=== PATIENT | male | born 1970 | race Asian ===

== ENCOUNTER 2022-09-20 18:11 | Inpatient (IN) | payer OTHER ==
[~2022-09-20] VITALS: Ht 172.7 cm; Wt 79.0 kg
[2022-09-20] MEDS ORDERED: LABETALOL HCL 5 MG/ML 20 ML VIAL IVP PRN (18:30)
[2022-09-20] MEDS ORDERED: SODIUM CHLORIDE 0.9% 100 ML ONE (18:44)
[2022-09-20] MEDS ORDERED: IOHEXOL 350 MG/ML 100 ML VIAL ONE (18:44)
[2022-09-20 18:47] LABS: BASOPHILS % (AUTO) 1.1 % (0.0-2.0); EOSINOPHILS % (AUTO) 3.2 % (1.0-6.0); HEMATOCRIT 47.6 % (41-53); HEMOGLOBIN 15.9 g/dL (13.5-17.5); LYMPHOCYTES # (AUTO) 2.6 K/uL (1.0-4.8); MEAN CORPUSCULAR HEMOGLOBIN 26.9 pg (26.0-34.0); MEAN CORPUSCULAR HGB CONC 33.4 G/dL (31.0-37.0); MEAN CORPUSCULAR VOLUME 81 fL (80-100); MONOCYTES # (AUTO) 0.7 K/uL (0.1-1.0); MONOCYTES % (AUTO) 7.2 % (2.0-9.0); NEUTROPHILS # (AUTO) 5.6 K/uL (1.8-7.7); NEUTROPHILS % (AUTO) 60.5 % (40.0-70.0); PLATELET COUNT (AUTO) 253 K/uL (150-450); RED BLOOD CELL COUNT(AUTO) 5.89 MIL/uL (4.50-5.90); RED CELL DISTRIBUTION WIDTH 14.4 % (11.5-14.5)
[2022-09-20 19:00] LABS: INR 0.9 (0.9-1.1); PROTHROMBIN TIME 9.8 SEC (9.4-11.6)
[2022-09-20] MEDS ORDERED: SODIUM CHLORIDE 0.9% 1,000 ML IV ONE (19:00)
[2022-09-20] MEDS ORDERED: ASPIRIN 325 MG TABLET PO ONE (19:00)
[2022-09-20 19:03] LABS: CALCIUM, TOTAL 9.1 mg/dL (8.8-10.5); CREATININE 1.52 mg/dL (0.60-1.30); POTASSIUM 3.8 mmol/L (3.5-5.1)
[2022-09-20 19:08] LABS: ALBUMIN 2.9 g/dL (3.4-5.0); BILIRUBIN,TOTAL 0.3 mg/dL (0.1-1.0); TOTAL PROTEIN, SERUM 6.6 g/dL (6.4-8.2)
[2022-09-20 19:09] LABS: PHOSPHORUS 3.7 mg/dL (2.5-4.9)
[2022-09-20] MEDS ORDERED: CLOPIDOGREL BISULFATE 75 MG TABLET PO ONE (19:30)
[2022-09-20] MEDS ORDERED: ONDANSETRON HCL 4 MG/2 ML VIAL IVP PRN (20:00)
[2022-09-20] MEDS ORDERED: NiCARDipine HCL 25 MG in SODIUM CHLORIDE 0.9% 240 ML IV PRN (20:00)
[2022-09-20] MEDS ORDERED: ACETAMINOPHEN 325 MG TABLET PO PRN (20:00)
[2022-09-20] MEDS: DOCUSATE SODIUM 100 MG CAPSULE PO SCH (20:48)
[2022-09-20] MEDS ORDERED: ACETYLCYSTEINE 10% 100 MG/ML 30 ML ORAL SOLUTION PO SCH (21:00)
[2022-09-20 21:11] LABS: APPEARANCE,URINE CLEAR (CLEAR); BILIRUBIN,URINE NEGATIVE (NEGATIVE); GLUCOSE, URINE (UA) 300-500 mg/dL (NEGATIVE); KETONES,URINE NEGATIVE (NEGATIVE); LEUKOCYTE ESTERASE ,URINE NEGATIVE (NEGATIVE); NITRATE,URINE NEGATIVE (NEGATIVE); OCCULT BLOOD,URINE MODERATE (NEGATIVE); PROTEIN,URINE 300-600,SEE CONFIRM mg/dL (NEGATIVE); UROBILINOGEN,URINE <=1.0 mg/dL (<=1.0)
[2022-09-20 21:17] LABS: AMPHET/METH SCREEN,URINE NEGATIVE (NEGATIVE); BARBITURATE SCREEN, URINE NEGATIVE (NEGATIVE); BENZODIAZEPINES SCREEN,URINE NEGATIVE (NEGATIVE); CANNABINOID SCREEN,URINE NEGATIVE (NEGATIVE); COCAINE SCREEN,URINE NEGATIVE (NEGATIVE); METHADONE SCREEN, URINE NEGATIVE (NEGATIVE); OPIATE SCREEN,URINE NEGATIVE (NEGATIVE); PHENCYCLIDINE SCREEN,URINE NEGATIVE (NEGATIVE)
[2022-09-20 21:26] LABS: SULFOSALICYLIC ACID,URINE 4+ (Negative)
[2022-09-20 21:27] LABS: BACTERIA,URINE None Seen /HPF (None Seen)
[2022-09-20 22:00] VITALS: BP 163/83
[2022-09-20] MEDS ORDERED: ATORVASTATIN CALCIUM 40 MG TABLET PO ONE (23:00)
[2022-09-20 23:13] LABS: HEMOGLOBIN A1C 9.1 % (3.8-5.6)
[2022-09-20 23:22] LABS: CHOL/HDL RATIO 5.4 (4.2-7.3); THYROID STIMULATING HORMONE 1.13 uIU/mL (0.36-3.74)
[2022-09-21] VITALS: BP 136/89
[2022-09-21 04:00] VITALS: BP 135/83
[2022-09-21 05:41] LABS: EOSINOPHILS % (AUTO) 2.4 % (1.0-6.0); HEMATOCRIT 42.9 % (41-53); HEMOGLOBIN 14.6 g/dL (13.5-17.5); LYMPHOCYTES # (AUTO) 1.5 K/uL (1.0-4.8); LYMPHOCYTES % (AUTO) 15.8 % (22.0-44.0); MEAN CORPUSCULAR HEMOGLOBIN 27.3 pg (26.0-34.0); MEAN CORPUSCULAR HGB CONC 33.9 G/dL (31.0-37.0); MEAN CORPUSCULAR VOLUME 80 fL (80-100); MONOCYTES # (AUTO) 0.5 K/uL (0.1-1.0); MONOCYTES % (AUTO) 5.8 % (2.0-9.0); PLATELET COUNT (AUTO) 221 K/uL (150-450); RED BLOOD CELL COUNT(AUTO) 5.34 MIL/uL (4.50-5.90); RED CELL DISTRIBUTION WIDTH 14.4 % (11.5-14.5)
[2022-09-21 05:42] LABS: CALCIUM, TOTAL 8.3 mg/dL (8.8-10.5); CREATININE 1.32 mg/dL (0.60-1.30); POTASSIUM 3.5 mmol/L (3.5-5.1)
[2022-09-21 08:00] VITALS: BP 153/88
[2022-09-21] MEDS: ACETYLCYSTEINE 20% 200 MG/ML 4 ML ORAL SOLUTION PO SCH ×2 (09:00→20:35)
[2022-09-21] MEDS ORDERED: DEXTROSE 50%-WATER 25 GM/50 ML SYRINGE IVP PRN (09:45)
[2022-09-21] MEDS: DOCUSATE SODIUM 100 MG CAPSULE PO SCH ×2 (10:19→20:24)
[2022-09-21] MEDS: ATORVASTATIN CALCIUM 40 MG TABLET PO SCH (10:20)
[2022-09-21] MEDS: AmLODIPine BESYLATE 10 MG TABLET PO SCH (10:20)
[2022-09-21] MEDS: INSULIN LISPRO 100 UNITS/ML SQ PRN ×3 (11:40→20:26)
[2022-09-21 12:00] VITALS: BP 146/88
[2022-09-21 13:06] LABS: GLUCOSE,POINT OF CARE 210 MG/DL (70-110)
[2022-09-21 16:00] VITALS: BP 146/88
[2022-09-21] MEDS: LOSARTAN POTASSIUM 25 MG TABLET PO SCH ×2 (18:30→19:38)
[2022-09-21 20:00] VITALS: BP 140/77
[2022-09-21 21:00] LABS: GLUCOSE,POINT OF CARE 202 MG/DL (70-110)
[2022-09-21 21:26] LABS: GLUCOSE,POINT OF CARE 191 MG/DL (70-110)
[2022-09-22] VITALS: BP 154/88
[2022-09-22 04:00] VITALS: BP 145/86
[2022-09-22 05:11] LABS: GLUCOSE,POINT OF CARE 174 MG/DL (70-110)
[2022-09-22 05:58] LABS: BASOPHILS % (AUTO) 0.6 % (0.0-2.0); CALCIUM, TOTAL 8.7 mg/dL (8.8-10.5); CREATININE 1.35 mg/dL (0.60-1.30); EOSINOPHILS % (AUTO) 3.2 % (1.0-6.0); HEMATOCRIT 45.9 % (41-53); HEMOGLOBIN 15.1 g/dL (13.5-17.5); LYMPHOCYTES # (AUTO) 2.1 K/uL (1.0-4.8); LYMPHOCYTES % (AUTO) 22.1 % (22.0-44.0); MEAN CORPUSCULAR HEMOGLOBIN 26.6 pg (26.0-34.0); MEAN CORPUSCULAR HGB CONC 32.9 G/dL (31.0-37.0); MEAN CORPUSCULAR VOLUME 81 fL (80-100); MONOCYTES # (AUTO) 0.7 K/uL (0.1-1.0); MONOCYTES % (AUTO) 7.8 % (2.0-9.0); NEUTROPHILS # (AUTO) 6.4 K/uL (1.8-7.7); NEUTROPHILS % (AUTO) 66.3 % (40.0-70.0); PLATELET COUNT (AUTO) 244 K/uL (150-450); POTASSIUM 3.8 mmol/L (3.5-5.1); RED BLOOD CELL COUNT(AUTO) 5.68 MIL/uL (4.50-5.90); RED CELL DISTRIBUTION WIDTH 14.3 % (11.5-14.5)
[2022-09-22] MEDS: INSULIN LISPRO 100 UNITS/ML SQ PRN ×3 (06:32→20:38)
[2022-09-22 08:00] VITALS: BP 130/81
[2022-09-22] MEDS: ATORVASTATIN CALCIUM 40 MG TABLET PO SCH (08:39)
[2022-09-22] MEDS: AmLODIPine BESYLATE 10 MG TABLET PO SCH (08:39)
[2022-09-22] MEDS: CLOPIDOGREL BISULFATE 75 MG TABLET PO SCH (08:39)
[2022-09-22] MEDS: ASPIRIN 81 MG CHEWABLE TABLET PO SCH (08:39)
[2022-09-22] MEDS: DOCUSATE SODIUM 100 MG CAPSULE PO SCH ×2 (08:39→20:32)
[2022-09-22] MEDS: GlipiZIDE 5 MG TABLET PO SCH (08:39)
[2022-09-22] MEDS: LOSARTAN POTASSIUM 25 MG TABLET PO SCH ×2 (08:40→20:32)
[2022-09-22] MEDS: ACETYLCYSTEINE 20% 200 MG/ML 4 ML ORAL SOLUTION PO SCH ×2 (08:40→20:32)
[2022-09-22 12:00] VITALS: BP 134/84
[2022-09-22 16:00] VITALS: BP 137/84
[2022-09-22 20:00] VITALS: BP 152/96
[2022-09-22 20:46] LABS: GLUCOSE,POINT OF CARE 223 MG/DL (70-110)
[2022-09-22 20:46] LABS: GLUCOSE,POINT OF CARE 135 MG/DL (70-110)
[2022-09-23] VITALS: BP 146/92
[2022-09-23 00:46] LABS: GLUCOSE,POINT OF CARE 209 MG/DL (70-110)
[2022-09-23 04:00] VITALS: BP 151/89
[2022-09-23] MEDS: INSULIN LISPRO 100 UNITS/ML SQ PRN ×2 (05:31→11:35)
[2022-09-23] MEDS: GlipiZIDE 5 MG TABLET PO SCH (05:31)
[2022-09-23 05:37] LABS: CALCIUM, TOTAL 8.6 mg/dL (8.8-10.5); CREATININE 1.4 mg/dL (0.60-1.30); POTASSIUM 3.8 mmol/L (3.5-5.1)
[2022-09-23 08:00] VITALS: BP 133/90
[2022-09-23] MEDS: DOCUSATE SODIUM 100 MG CAPSULE PO SCH ×2 (08:34→20:53)
[2022-09-23] MEDS: ATORVASTATIN CALCIUM 40 MG TABLET PO SCH (08:35)
[2022-09-23] MEDS: CLOPIDOGREL BISULFATE 75 MG TABLET PO SCH (08:35)
[2022-09-23] MEDS: LOSARTAN POTASSIUM 25 MG TABLET PO SCH ×2 (08:35→20:53)
[2022-09-23] MEDS: AmLODIPine BESYLATE 10 MG TABLET PO SCH (08:35)
[2022-09-23] MEDS: ASPIRIN 81 MG CHEWABLE TABLET PO SCH (08:36)
[2022-09-23 10:26] LABS: GLUCOSE,POINT OF CARE 193 MG/DL (70-110)
[2022-09-23 12:00] VITALS: BP 114/69
[2022-09-23] MEDS: ACETYLCYSTEINE 20% 200 MG/ML 4 ML ORAL SOLUTION PO SCH ×2 (15:35→20:54)
[2022-09-23 16:00] VITALS: BP 128/72
[2022-09-23 17:46] LABS: GLUCOSE,POINT OF CARE 257 MG/DL (70-110)
[2022-09-23 20:22] LABS: GLUCOMETER DEV NAME(LOC) 5N.2C; GLUCOSE,POINT OF CARE 193 MG/DL (70-110)
[2022-09-23 20:38] VITALS: BP 120/73
[2022-09-24 00:37] VITALS: BP 129/82
[2022-09-24 04:56] VITALS: BP 148/85
[2022-09-24 05:56] LABS: GLUCOMETER DEV NAME(LOC) 5N.1C; GLUCOSE,POINT OF CARE 135 MG/DL (70-110)
[2022-09-24] MEDS: GlipiZIDE 5 MG TABLET PO SCH (06:20)
[2022-09-24] MEDS: INSULIN LISPRO 100 UNITS/ML SQ PRN ×4 (07:08→21:50)
[2022-09-24 07:29] VITALS: BP 144/81
[2022-09-24] MEDS: ASPIRIN 81 MG CHEWABLE TABLET PO SCH (08:18)
[2022-09-24] MEDS: CLOPIDOGREL BISULFATE 75 MG TABLET PO SCH (08:19)
[2022-09-24] MEDS: ATORVASTATIN CALCIUM 40 MG TABLET PO SCH (08:19)
[2022-09-24] MEDS: LOSARTAN POTASSIUM 25 MG TABLET PO SCH ×2 (08:19→21:02)
[2022-09-24] MEDS: AmLODIPine BESYLATE 10 MG TABLET PO SCH (08:19)
[2022-09-24] MEDS: DOCUSATE SODIUM 100 MG CAPSULE PO SCH ×2 (08:19→21:02)
[2022-09-24 08:46] LABS: GLUCOMETER DEV NAME(LOC) 5S.1B; GLUCOSE,POINT OF CARE 198 MG/DL (70-110)
[2022-09-24 12:03] VITALS: BP 150/82
[2022-09-24 15:08] VITALS: BP 150/81
[2022-09-24 21:13] VITALS: BP 120/72
[2022-09-24 21:41] LABS: GLUCOMETER DEV NAME(LOC) 5N.1C; GLUCOSE,POINT OF CARE 165 MG/DL (70-110)
[2022-09-24 23:06] LABS: GLUCOMETER DEV NAME(LOC) 5N.2C; GLUCOSE,POINT OF CARE 255 MG/DL (70-110)
[2022-09-25] VITALS: BP 121/69
[2022-09-25 01:41] LABS: GLUCOMETER DEV NAME(LOC) 5S.2C; GLUCOSE,POINT OF CARE 159 MG/DL (70-110)
[2022-09-25 04:00] VITALS: BP 132/75
[2022-09-25 06:26] LABS: GLUCOMETER DEV NAME(LOC) 5N.1C; GLUCOSE,POINT OF CARE 190 MG/DL (70-110)
[2022-09-25] MEDS: INSULIN LISPRO 100 UNITS/ML SQ PRN ×3 (06:45→20:13)
[2022-09-25] MEDS: GlipiZIDE 5 MG TABLET PO SCH (06:46)
[2022-09-25 07:40] VITALS: BP 133/78
[2022-09-25] MEDS: LOSARTAN POTASSIUM 25 MG TABLET PO SCH ×2 (10:05→20:04)
[2022-09-25] MEDS: DOCUSATE SODIUM 100 MG CAPSULE PO SCH ×2 (10:05→20:15)
[2022-09-25] MEDS: ATORVASTATIN CALCIUM 40 MG TABLET PO SCH (10:05)
[2022-09-25] MEDS: ASPIRIN 81 MG CHEWABLE TABLET PO SCH (10:06)
[2022-09-25] MEDS: CLOPIDOGREL BISULFATE 75 MG TABLET PO SCH (10:06)
[2022-09-25] MEDS: AmLODIPine BESYLATE 10 MG TABLET PO SCH (10:06)
[2022-09-25 11:06] VITALS: BP 129/77
[2022-09-25 15:05] VITALS: BP 133/76
[2022-09-25 18:10] LABS: COVID AG,FIA SOURCE NASAL SWAB
[2022-09-25 20:07] VITALS: BP 116/70
[2022-09-25 20:41] LABS: GLUCOMETER DEV NAME(LOC) 5S.1B; GLUCOSE,POINT OF CARE 263 MG/DL (70-110)
[2022-09-25 20:46] LABS: GLUCOMETER DEV NAME(LOC) 5N.2C; GLUCOSE,POINT OF CARE 188 MG/DL (70-110)
[2022-09-25 20:46] LABS: GLUCOMETER DEV NAME(LOC) 5N.2C; GLUCOSE,POINT OF CARE 160 MG/DL (70-110)
[2022-09-26 00:18] VITALS: BP 112/68
[2022-09-26 04:31] VITALS: BP 113/94
[2022-09-26] MEDS: GlipiZIDE 5 MG TABLET PO SCH (06:03)
[2022-09-26] MEDS: INSULIN LISPRO 100 UNITS/ML SQ PRN ×3 (06:08→18:11)
[2022-09-26 06:26] LABS: GLUCOMETER DEV NAME(LOC) 5N.1C; GLUCOSE,POINT OF CARE 152 MG/DL (70-110)
[2022-09-26 08:09] VITALS: BP 113/77
[2022-09-26] MEDS: ATORVASTATIN CALCIUM 40 MG TABLET PO SCH (09:20)
[2022-09-26] MEDS: CLOPIDOGREL BISULFATE 75 MG TABLET PO SCH (09:20)
[2022-09-26] MEDS: DOCUSATE SODIUM 100 MG CAPSULE PO SCH (09:20)
[2022-09-26] MEDS: LOSARTAN POTASSIUM 25 MG TABLET PO SCH (09:21)
[2022-09-26] MEDS: AmLODIPine BESYLATE 10 MG TABLET PO SCH (09:21)
[2022-09-26] MEDS: ASPIRIN 81 MG CHEWABLE TABLET PO SCH (09:21)
[2022-09-26 11:45] VITALS: BP 107/71
[2022-09-26 15:56] VITALS: BP 110/51
[2022-09-26 18:41] LABS: GLUCOMETER DEV NAME(LOC) 5N.1C; GLUCOSE,POINT OF CARE 166 MG/DL (70-110)
[2022-09-26 18:46] LABS: GLUCOMETER DEV NAME(LOC) 5N.2C; GLUCOSE,POINT OF CARE 141 MG/DL (70-110)
== END 2022-09-26 18:40 | DRG 64 ==
LOC: EMS 18:11 → ICU 20:24 → 5S 09-23 16:45
PROVIDERS: ADMIT Internal Medicine; ATTEND Internal Medicine
DX: I63.29 Cerebral infarction due to unspecified occlusion or stenosis of other precerebral arteries (principal); I50.31 Acute diastolic (congestive) heart failure; I16.1 Hypertensive emergency; N17.9 Acute kidney failure, unspecified; Z20.822 Contact with and (suspected) exposure to COVID-19; E11.9 Type 2 diabetes mellitus without complications; E78.5 Hyperlipidemia, unspecified; R26.89 Other abnormalities of gait and mobility; R47.1 Dysarthria and anarthria; F17.200 Nicotine dependence, unspecified, uncomplicated; I11.0 Hypertensive heart disease with heart failure; Z79.02 Long term (current) use of antithrombotics/antiplatelets; Z79.82 Long term (current) use of aspirin; Z79.84 Long term (current) use of oral hypoglycemic drugs; Z79.899 Other long term (current) drug therapy; Z71.6 Tobacco abuse counseling; Z91.148 Patient's other noncompliance with medication regimen for other reason
CPT/HCPCS: 70496; 70498; 70551; 71045; 74230; 80048; 80053; 80061; 80307; 81001; 81002; 82948; 82962; 83036; 83735; 83880; 84100; 84443; 84484; 85025; 85610; 85730; 86850; 86900; 86901; 87081; 92526; 92610; 92611; 93005; 93306; 93880; 97112; 97116; 97163; 97166; 97530; 97535; 99291; G0378; G0480; J3490; J7030; J7050; Q9967; 36415-L1; 36415-TC; 70450; 70450-TC